=== PATIENT | female | born 1975 | race Caucasian/White ===

== ENCOUNTER → 2016-09-07 | Outpatient (CLI) | payer OTHER | LOC: RAD 09:37 | PROVIDERS: ATTEND Podiatrist Foot & Ankle Surgery | DX: M72.2 Plantar fascial fibromatosis (principal) ==

== ENCOUNTER 2016-09-16 11:03 | Day surgery (SDC) | payer OTHER ==
[2016-09-15 08:21] LABS: ABSOLUTE EOSINOPHILS # (AUTO) 0.2 10^3/uL (0.0-0.6); ABSOLUTE LYMPHOCYTES (AUTO) 1.8 10^3/uL (0.5-4.7); ABSOLUTE MONOCYTES (AUTO) 0.5 10^3/uL (0.1-1.4); ABSOLUTE NEUT (AUTO) 3.7 10^3/uL (1.7-8.2); BASOPHILS % (AUTO) 0.4 % (0-2); EOSINOPHILS % (AUTO) 3.3 % (0-6); HEMATOCRIT 38.4 % (36.0-47.0); HEMOGLOBIN 13.2 g/dL (12.0-15.5); HGB HCT DIFFERENCE 1.2; LYMPHOCYTES % (AUTO) 29.1 % (13-45); MEAN CORPUSCULAR HEMOGLOBIN 29.3 pg (27.0-33.4); MEAN CORPUSCULAR HGB CONC 34.3 g/dL (32.0-36.0); MEAN CORPUSCULAR VOLUME 86 fl (80-97); MONOCYTES % (AUTO) 7.8 % (3-13); RED BLOOD COUNT 4.49 10^6/uL (3.72-5.28); RED CELL DISTRIBUTION WIDTH 13.1 % (11.5-14.0); SEGMENTED NEUTROPHILS % (AUTO) 59.4 % (42-78); WHITE BLOOD COUNT 6.3 10^3/uL (4.0-10.5)
[2016-09-15 08:31] LABS: APPEARANCE,URINE CLEAR; BILIRUBIN,URINE NEGATIVE (NEGATIVE); GLUCOSE, URINE NEGATIVE (NEGATIVE); KETONES,URINE NEGATIVE (NEGATIVE); LEUKOCYTE ESTERASE,URINE NEGATIVE (NEGATIVE); NITRITE,URINE NEGATIVE (NEGATIVE); PROTEIN,URINE NEGATIVE (NEGATIVE); URINE SPECIFIC GRAVITY 1.003; UROBILINOGEN,URINE NEGATIVE mg/dL (<2.0)
[~2016-09-16 11:03] MED LIST: CEFAZOLIN 1 GM/D5W RTU 1 GM/50 ML RTUPB IV PRN; RINGERS SOLUTION,LACTATED 1,000 ML IV PRN
[2016-09-16] MEDS ORDERED: DEXAMETHASONE SOD PHOSPHATE INJ 4 MG/1 ML VIAL ONE ×2 (11:39→11:59)
[2016-09-16] MEDS ORDERED: HYDROMORPHONE HCL INJ/PF 2 MG/ML AMPULE ONE (11:40)
[2016-09-16] MEDS ORDERED: MIDAZOLAM 2 MG/2 ML INJ ONE (11:40)
[2016-09-16] MEDS ORDERED: ONDANSETRON HCL INJ/PF 4 MG/2 ML SDV ONE (11:40)
[2016-09-16] MEDS ORDERED: PROPOFOL INJ 200 MG/20 ML VIAL IV ONE (11:40)
[2016-09-16] MEDS ORDERED: PROMETHAZINE HCL INJ 25 MG/1 ML VIAL ONE (11:55)
[2016-09-16] MEDS ORDERED: BUPIVACAINE HCL 0.5 % INJ/PF 30 ML SDV ONE (11:59)
[2016-09-16] MEDS ORDERED: LIDOCAINE 2% INJ (20 MG/ML) 20 ML MDV ONE (11:59)
--- NOTE | 2016-09-16 14:13 | SURGICARE OPERATIVE REPORT E ---
[facility] NAME: ALISA GRADY AGE: 40Y DATE OF SURGERY: 09/16/2016 ROOM: PREOPERATIVE DIAGNOSIS: Chronic heel spur syndrome, left foot. POSTOPERATIVE DIAGNOSIS: Chronic heel spur syndrome, left foot. PROCEDURES PERFORMED: Endoscopic plantar fasciotomy, left foot. SURGEON: RUDOLPH YOUSIF D.P.M. FINDINGS: Intraoperative findings indicated very thick scar type of plantar fascia at the level of its attachment to the plantar aspect of the calcaneus. Intraoperative findings were confirmed clinically and also via intraoperative photography. DESCRIPTION OF PROCEDURE: With the patient lying in the dorsal recumbent position, the left foot and leg were prepped and draped in the usual standard orthopedic manner. After the local anesthesia was administered, which was a posterior tibial block around the ankle and also blocking the sural nerve. After the anesthetic effect was accomplished, attention was directed to the medial aspect of the left foot. The measurements from the x-rays were transferred to the medial side of the heel at this point. The measurements were from the posterior aspect of the heel to the front of the medial calcaneal tubercle and that was about 3.5 cm and from plantar aspect of the foot in front of the medial calcaneal tubercle, which was about 2.5 cm. The intersection of the 2 measurements was the area where the placement of the initial incision would be located. At this point, the left leg was elevated for approximately 2 minutes of time and the left ankle pneumatic tourniquet was inflated up to 250 mmHg after the blood was exsanguinated from the left foot. The left leg was brought to the level of the table and attention was directed to the medial aspect of the left heel. A 1 cm in length vertical incision was placed right over the level of the intersection of the 2 points of obtained from the x-rays. The initial incision was deepened in the superficial and deep subcutaneous tissues were dissected with blunt and sharp dissection. This dissection was carried until the level of the placement of the instrumentation was established, which was between the plantar fascia superiorly and the heavy layer of adipose tissue inferiorly to the plantar fascia. Using an elevator, a pathway was created for the placement of the probe with a trocar sheath. The pathway was immediately inferior and adjacent to the plantar fascia and extended from medial to lateral direction across the length of the fascia. Next, the probe with the trocar sheath was introduced into the surgical area, and a small stab incision was created to the lateral aspect of the heel in order to allow the cylinder to exit on the lateral aspect of the heel. At this point, the probe was removed and the cutting surface of the trocar sheath was adjusted in such a way that it was facing directly superiorly in relationship to the plantar fascia. At this point, the scope was introduced into the area and the point of orientation was established. The first intraoperative picture was obtained, which documented the white, glistening, thick plantar fascia. Next, using a regular hockey-type blade, the plantar fascia was cut from medial to lateral direction. Several repetitions were performed with this blade due to the thickness of the plantar fascia. At this point, the second photograph was obtained documenting the partial severing of the plantar fascia. Next, pressure was applied to the ball of the foot. The foot was dorsiflexed and the repetition of cutting from medial to lateral direction continued until the full thickness of the plantar fascia was severed. Only the medial two-thirds of the plantar fascia were completely cut from medial to lateral direction and the lateral one-third of the plantar fascia was left uninterrupted. Next, the septal muscle fibers were also cut. At this point, a final photograph was taken documenting the complete severing of the plantar fascia and again, only the medial two-thirds of the fascia was severed. At this point, the positioning of the scalpel and the blade were reversed in order to make sure that any un-severed fibers of the plantar fascia were cut completely. Upon completion of the severing of the plantar fascia, the surgical area was irrigated with copious amounts of sterile saline solution. The trocar sheath was removed from the surgical area and the left ankle pneumatic tourniquet was deflated and circulation to the left foot returned to normal immediately as the normal digital color and temperature became apparent. Next, 1 mL of dexamethasone was injected into the surgical area to control postoperative inflammation. A [place] was introduced from medial to lateral direction into the surgical wound in order to prevent hematoma formation. Next, a 4-0 nylon was utilized to close the small stab incision on the medial and lateral aspect of the heel. A Betadine compression dressing was applied around the left foot followed with an Lionel bandage and a surgical shoe. This patient tolerated the procedure well and left the operating room with stable vital signs and in good condition. The patient was taken to the recovery room alert, conscious, and oriented. There are no permanent disabilities anticipated at this time. DICTATING PHYSICIAN: RUDOLPH YOUSIF D.P.M. [id number] PHY#: [id number] ID: [id number] JOB#: [id number] ACCT: [id number] cc:RUDOLPH YOUSIF D.P.M. >
== END 2016-09-16 14:35 | disposition home or self-care (01) ==
LOC: SC 11:03
PROVIDERS: ATTEND Podiatrist Foot & Ankle Surgery
PROC: 0JBR0ZX Excision of Left Foot Subcutaneous Tissue and Fascia, Open Approach, Diagnostic (ICD-10-PCS; principal; 2016-09-16 12:00)
DX: M72.2 Plantar fascial fibromatosis (principal); M77.32 Calcaneal spur, left foot; Z88.1 Allergy status to other antibiotic agents; Z79.899 Other long term (current) drug therapy; Z79.1 Long term (current) use of non-steroidal anti-inflammatories (NSAID)
CPT/HCPCS: 36415; 85025; 81001; 29893; J2250; J3490; J0690; J1100; J1170; J2550; J2405; J2704; 1464

== ENCOUNTER 2017-01-28 10:03 | Emergency (ER) | payer OTHER ==
[2017-01-28] MEDS ORDERED: IBUPROFEN 600 MG TABLET PO ONE (10:18)
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
[2017-01-28 11:25] VITALS: BP 141/93
== END 2017-01-28 11:23 | disposition home or self-care (01) ==
LOC: ER 10:03
DX: S80.02XA Contusion of left knee, initial encounter (principal); S80.01XA Contusion of right knee, initial encounter; V53.5XXA Driver of pick-up truck or van injured in collision with car, pick-up truck or van in traffic accident, initial encounter; Z88.3 Allergy status to other anti-infective agents; Z90.710 Acquired absence of both cervix and uterus
CPT/HCPCS: 99284

== ENCOUNTER 2017-01-29 13:04 | Emergency (ER) | payer OTHER ==
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
[2017-01-29 14:49] VITALS: BP 140/88
== END 2017-01-29 14:46 | disposition home or self-care (01) ==
LOC: ER 13:04
DX: S39.012A Strain of muscle, fascia and tendon of lower back, initial encounter (principal); V49.9XXA Car occupant (driver) (passenger) injured in unspecified traffic accident, initial encounter; Z88.1 Allergy status to other antibiotic agents
CPT/HCPCS: 99283

== ENCOUNTER 2017-03-30 20:54 | Emergency (ER) | payer OTHER ==
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
[2017-03-30] MEDS ORDERED: PROCHLORPERAZINE MALEATE 10 MG TABLET PO ONE (22:45)
[2017-03-30] MEDS ORDERED: KETOROLAC TROMETHAMINE 60 MG/2 ML SDV IM ONE (22:45)
[2017-03-30] MEDS ORDERED: DIPHENHYDRAMINE HCL 25 MG CAPSULE PO ONE (22:45)
[2017-03-31] MEDS ORDERED: HYDROCODONE/ACETAMINOPHEN 5-325 MG TABLET PO ONE (00:54)
[2017-03-31] MEDS ORDERED: HYDROCODONE/ACETAMINOPHEN 5-325 MG 6 TAB/DSPK PO PRN (00:54)
[2017-03-31 01:41] VITALS: BP 131/83
== END 2017-03-31 01:37 | disposition home or self-care (01) ==
LOC: ER 20:54
DX: S16.1XXA Strain of muscle, fascia and tendon at neck level, initial encounter (principal); G44.209 Tension-type headache, unspecified, not intractable; M62.830 Muscle spasm of back; M54.2 Cervicalgia; R20.0 Anesthesia of skin; X58.XXXA Exposure to other specified factors, initial encounter
CPT/HCPCS: 99283; 96372; J1885; S0183

== ENCOUNTER 2018-01-09 17:03 | Emergency (ER) | payer OTHER ==
[2018-01-09] MEDS ORDERED: DEXAMETHASONE SOD PHOS INJ 10 MG/1 ML VIAL IM ONE (17:29)
[2018-01-09] MEDS ORDERED: KETOROLAC TROMETHAMINE INJ/PF 30 MG/1 ML SDV IM ONE (17:29)
[2018-01-09] MEDS ORDERED: LIDOCAINE 5% (700 MG) TRANSDERMAL ADH..PATCH TP ONE (17:29)
--- NOTE | 2018-01-09 17:34 | ER Document Report ---
HPI - HPI Pain Level: 4 Notes: Patient is a 42-year-old female with a history of chronic neck pain and under the care of pain management who presents to the ED complaining of right upper buttock pain 2-3 days. Patient states that she has been doing yoga and noticed when she sat up that she started having pain in that area. Patient states that sitting for prolonged periods makes the pain worse. Laying down improves her pain. Patient states that the pain is primarily in the buttock but will radiate down the lateral side of her leg on occasion. She has not had any injections or procedures to her lower back. She denies any other recent illness. Denies any smoking or IV drug use. No other significant past medical history. She is eating and drinking without any difficulties. She is urinating normally and having normal bowel movements. Patient states that she is able to ambulate as well without any difficulties. Denies any headache, fever, URI, sore throat, chest pain, palpitations, syncope, cough, shortness of breath, wheeze, dyspnea, abdominal pain, nausea/vomiting/diarrhea, urinary retention, dysuria, hematuria, loss of control of bowel or bladder, saddle anesthesia, muscle paralysis/weakness, or rash. - ROS Systems Reviewed and Negative: Yes All other systems reviewed and negative - REPRODUCTIVE Reproductive: DENIES: : Past Medical History - Social History Smoking Status: Never Smoker Family History: Arthritis, CAD, CVA, DM, Hyperlipidemia, Hypertension, Malignancy - Past Medical History Cardiac Medical History: Denies: Hx Heart Attack, Hx Hypertension Pulmonary Medical History: Denies: Hx Asthma Neurological Medical History: Denies: Hx Cerebrovascular Accident, Hx Seizures Renal/ Medical History: Denies: Hx Peritoneal Dialysis GI Medical History: Denies: Hx Hepatitis, Hx Hiatal Hernia, Hx Ulcer Infectious Medical History: Denies: Hx Hepatitis Past Surgical History: Reports: Hx Appendectomy, Hx Hysterectomy. Denies: Hx Mastectomy, Hx Open Heart Surgery - Immunizations Hx Diphtheria, Pertussis, Tetanus Vaccination: Yes Vertical Provider Document - CONSTITUTIONAL Agree With Documented VS: Yes Notes: PHYSICAL EXAMINATION: GENERAL: Well-appearing, well-nourished and in no acute distress. LUNGS: Breath sounds clear to auscultation bilaterally and equal. No wheezes rales or rhonchi. HEART: Regular rate and rhythm without murmurs, rubs, gallops. ABDOMEN: Soft, nontender, nondistended abdomen. No guarding, no rebound. No masses appreciated. Normal bowel sounds present. No CVA tenderness bilaterally. No pulsatile mass Musculoskeletal: LE's b/l: FROM to passive/active. Strength 5+/5. No deficits noted. No bony tenderness of extremities. Back: FROM to passive/active. Strength 5+/5. No vertebral point tenderness, stepoffs, or deformities. No other bony tenderness, erythema, swelling, or ecchymosis. SLR negative b/l. + rt SI jt tenderness, correlates with pain described. No foot drop Extremities: No cyanosis, clubbing, or edema b/l. Peripheral pulses 2+. Capillary refill less than 2 seconds. NEUROLOGICAL: Normal speech, normal gait. Normal sensory, motor exams. Reflexes 2+ b/l. PSYCH: Normal mood, normal affect. SKIN: Warm, Dry, normal turgor, no rashes or lesions noted. - INFECTION CONTROL TRAVEL OUTSIDE OF THE [place] IN LAST 30 DAYS: No Course - Re-evaluation Re-evalutation: 01/09/18 17:31 Patient is an afebrile, well-hydrated, 42-year-old female who presents to the ED with right sacroiliitis. Vitals are acceptable. PE is otherwise unremarkable for any neurovascular compress, obvious tendon/ligament rupture, obvious fracture/dislocation, septic joint, or other focal neurological deficits. Patient is able to ambulate and weight-bear without any difficulties. Her pain is reproducible to palpation at the right SI joint. Toradol, Decadron, Lidoderm patch given today. No other labs or imaging warranted at this time based on H&P. Low suspicion for any meningitis, fracture , expanding/ruptured AAA, cauda equina syndrome, epidural mass lesion/abscess, herniated disc causing severe spinal stenosis, or other systemic infection at this time. Patient is aware that t his condition can change from initial presentation and that she needs monitor symptoms closely for any acute changes. I will send her home with a prescription for naproxen and baclofen. Conservative measures otherwise for symptoms. Recheck with your PCM/pain management in 3-5 days. Consider consult orthopedic/physical therapy. Return to the ED with any worsening/concerning symptoms otherwise as reviewed discharge. Patient is in agreement. - Vital Signs Vital signs: Temp Pulse Resp BP Pulse Ox 98.4 F 79 18 151/82 H 99 01/09/18 17:08 01/09/18 17:08 01/09/18 17:08 01/09/18 17:08 01/09/18 17:08 Discharge - Discharge Clinical Impression: SI (sacroiliac) joint inflammation Condition: Stable Disposition: HOME, SELF-CARE Additional Instructions: Rest, Ice, Compression Tylenol/ibuprofen as needed Light stretches daily Strength exercises as able Moist heat and massage may help F/u with your PCP/pain management in 3-5 days for a recheck Consider consult(s) with Orthopedics/physical therapy for ongoing/worsening symptoms Return to the ED with any worsening symptoms and/or development of fever, headache, chest pain, palpitations, syncope, shortness of breath, trouble breathing, abdominal pain, n/v/d, blood in stool/urine, loss of control of bowel /bladder, urinary retention, muscle weakness/paralysis, saddle anesthesia, numbness/tingling, or other worsening symptoms that are concerning to you. Prescriptions: Baclofen [Baclofen 10 mg Tablet] 5 - 10 mg PO BID PRN #10 tablet PRN Reason: Naproxen 500 mg PO BID PRN #30 tablet PRN Reason: Forms: Elevated Blood Pressure, Return to Work Referrals: [facility] ([facility]) [Provider Group] - Follow up as needed
[2018-01-09 18:06] VITALS: BP 136/74
== END 2018-01-09 18:15 | disposition home or self-care (01) ==
LOC: ER 17:03
DX: M46.1 Sacroiliitis, not elsewhere classified (principal); G89.29 Other chronic pain; M54.2 Cervicalgia; Z90.710 Acquired absence of both cervix and uterus
CPT/HCPCS: 99283; 96372; J1885; J1100

== ENCOUNTER → 2018-01-10 | Outpatient (CLI) | payer OTHER ==
--- NOTE | 2018-01-10 14:50 | RADIOLOGY REPORT (SQ) ---
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 TECHNIQUE: Sagittal and Axial imaging includes T1, T2, STIR and gradient echo sequences. Coronal T2/ HASTE imaging. LIMITATIONS: Patient motion. FINDINGS: VISUALIZED UPPER ABDOMEN: Limited evaluation. No acute or suspicious findings suggested. SEGMENTATION: No transitional anatomy. The lowest well-developed disc space is labeled L5-S1. ALIGNMENT: Anatomic. VERTEBRAE: Intact. BONE MARROW: Normal. No marrow replacement or reactive changes. DISC SIGNAL: Desiccation multiple levels. POSTERIOR ELEMENTS: Intact. HARDWARE: None in the spine. CORD AND CONUS: Normal in size and signal intensity. Conus at the appropriate level. SOFT TISSUES: No aortic aneurysm seen. No bulky retroperitoneal adenopathy or mass. No paraspinal mas s or fluid. L1-L2: No significant spinal stenosis or exit foraminal stenosis. L2-L3: Small right paracentral annular fissure indenting the ventral margin of thecal sac. L3-L4: No significant spinal stenosis or exit foraminal stenosis. L4-L5: No significant spinal stenosis or exit foraminal stenosis. L5-S1: Small central disc protrusion indenting the ventral margin of thecal sac. LOWER THORACIC: Incompletely imaged. No stenosis seen. SACRUM: Visualized upper sacrum intact. OTHER: No other significant findings. IMPRESSION: Annular fissure L2-3. Small central disc protrusion L5-S1. TECHNICAL DOCUMENTATION: JOB ID: [id number] [employer]- All Rights Reserved Reading location - IP/workstation name: [email or web address]
== END ==
LOC: RAD 13:05
PROVIDERS: ATTEND Family Medicine
DX: M51.17 Intervertebral disc disorders with radiculopathy, lumbosacral region (principal)
CPT/HCPCS: 72148

== ENCOUNTER → 2018-02-08 | Outpatient (CLI) | payer OTHER ==
--- NOTE | 2018-02-08 11:40 | WOMENS IMAGING REPORT ---
EXAM DESCRIPTION: 3D SCREENING MAMMO BILAT COMPLETED DATE/TIME: 02/08/2018 11:26 am REASON FOR STUDY: MALIGNANT NEOPLASM OF BREAST; Z12.39 Z12.31 ENCNTR SCREEN MAMMOGRAM FOR MALIGNANT NEOPLASM OF JD COMPARISON: 07/08/2014 and 10/01/2012. TECHNIQUE: Standard craniocaudal and mediolateral oblique views of each breast recorded using digita l acquisition and breast tomosynthesis. LIMITATIONS: None. FINDINGS: No masses, calcifications or architectural distortion. No areas of suspicion. Read with the assistance of CAD. .[facility] - R2 Cenova Version 1.3 .[facility] Imaging - R2 Cenova Version 1.3 .[facility] Imaging - R2 Cenova Version 2.4 .[facility] - R2 Cenova Version 2.4 .[facility] - R2 Manager Registration Version 9.2 IMPRESSION: NORMAL MAMMOGRAM. BIRADS 1. BREAST DENSITY: c. The breasts are heterogeneously dense, which may obscure small masses. BIRAD: 1 NEGATIVE RECOMMENDATION: ROUTINE SCREENING COMMENT: The patient has been notified of the results by letter per SA requirements. Additional no tification policies are in place for contacting patient with suspicious or incomplete findings. Quality ID #[id number]: The [employer] recommends an annual screening mammogram for women aged 40 years or over. This facility utilizes a reminder system to ensure that all patients receive reminder letters, and/or direct phone calls for appointments. This includes reminders for routine scr eening mammograms, diagnostic mammograms, or other Breast Imaging Interventions when appropriate. Th is patient will be placed in the appropriate reminder system. The [employer] (ACR) has developed recommendations for screening MRI of the breast s in certain patient populations, to be used in conjunction with mammography. Breast MRI surveillanc e may be appropriate for women with more than 20% lifetime risk of developing breast cancer as deter mined by genetic testing, significant family history of the disease, or history of mantle radiation f or Hodgkins Disease. ACR Practice Guidelines 2008. DBT Technology DBT is a type of tomographic mammography. With conventional mammography, overlapping breast tissue ma y make lesions difficult to detect, even with good compression. DBT uses an x-ray tube that rotates a round the breast, taking images at different angles. These images are then combined to create thin sl ices of the breast that the radiologist can view as a 3D reconstruction. The UI Robot unit can perform full-field digital mammograms (2D imaging); or DBT (3D imaging); or both, in a combination mode that quickly performs both the mammogram and the tomosynthesis scan while the breast is still compressed. PQRS 6045F: Fluoroscopic imaging is not utilized for breast tomosynthesis. TECHNICAL DOCUMENTATION: FINDING NUMBER: (1) ASSESSMENT: (1) JOB ID: [id number] [employer]- All Rights Reserved Reading location - IP/workstation name: [facility]-RR
== END ==
LOC: WI 10:10
PROVIDERS: ATTEND Nurse Practitioner Family
DX: Z12.31 Encounter for screening mammogram for malignant neoplasm of breast (principal); Z12.39 Encounter for other screening for malignant neoplasm of breast
CPT/HCPCS: 77063; 77067

== ENCOUNTER 2019-04-22 19:08 | Emergency (ER) | payer OTHER ==
[2019-04-22] MEDS ORDERED: DIPH/PERTUSS(ACELL)/TETANUS VAC/PF 0.5 ML SYR (>=10YO) IM ONE (19:28)
[2019-04-22] MEDS ORDERED: LIDOCAINE 1% INJ-PF (10 MG/ML) 30 ML SDV INJ ONE ×2 (19:30→20:42)
[2019-04-22] MEDS ORDERED: LIDOCAINE 1% INJ-PF (10 MG/ML) 30 ML SDV ONE (19:31)
--- NOTE | 2019-04-22 19:32 | ER Document Report ---
ED Medical Screen (RME) - General Chief Complaint: Laceration Stated Complaint: FINGER LACERATION Time Seen by Provider: 04/22/19 19:28 Primary Care Provider: FABIOLA MCCLURE CRNP [Primary Care Provider] - Follow up as needed Mode of Arrival: Ambulatory Information source: Patient Notes: Patient is an otherwise healthy 43-year-old female presenting to the emergency room with chief complaint of left fourth digit laceration. Patient reports she was cleaning of her lawnmower when she got cut by the blade. The blade was not actively running. Patient is unsure when her last tetanus was. There is mild active bleeding noted at the time of arrival. Patient having severe pain, digital block was performed in triage, patient will be sent for x-rays. I have greeted and performed a rapid initial assessment of this patient. A comprehensive ED assessment and evaluation of the patient, analysis of test results and completion of the medical decision making process will be conducted by additional ED providers. I have specifically instructed the patient or family members with the patient to immediately return to any nursing staff should anything change in the patient's condition or with their chief complaint. This medical record was dictated with voice recognizing software. There may be grammatical, syntax errors that are unintended. TRAVEL OUTSIDE OF THE [place] IN LAST 30 DAYS: No - Related Data Allergies/Adverse Reactions: erythromycin base [Erythromycin Base] Allergy (Severe, Verified 01/09/18 17:30) VOMITING, HIVES, SOB Past Medical History - Past Medical History Cardiac Medical History: Denies: Hx Heart Attack, Hx Hypertension Pulmonary Medical History: Denies: Hx Asthma Neurological Medical History: Denies: Hx Cerebrovascular Accident, Hx Seizures Renal/ Medical History: Denies: Hx Peritoneal Dialysis GI Medical History: Denies: Hx Hepatitis, Hx Hiatal Hernia, Hx Ulcer Infectious Medical History: Denies: Hx Hepatitis Past Surgical History: Reports: Hx Appendectomy, Hx Hysterectomy. Denies: Hx Mastectomy, Hx Open Heart Surgery - Immunizations Hx Diphtheria, Pertussis, Tetanus Vaccination: Yes Physical Exam - Vital signs Vitals: Temp Pulse Resp BP Pulse Ox 98.3 F 91 22 H 134/92 H 97 04/22/19 19:19 04/22/19 19:19 04/22/19 19:19 04/22/19 19:19 04/22/19 19:19 Course - Vital Signs Vital signs: Temp Pulse Resp BP Pulse Ox 98.3 F 91 22 H 134/92 H 97 04/22/19 19:19 04/22/19 19:19 04/22/19 19:19 04/22/19 19:19 04/22/19 19:19 Doctor's Discharge - Discharge Referrals: FABIOLA MCCLURE CRNP [Primary Care Provider] - Follow up as needed
[2019-04-22] MEDS ORDERED: OXYCODONE-ACETAMINOPHEN 5-325 MG TABLET PO ONE (19:39)
--- NOTE | 2019-04-22 20:38 | RADIOLOGY REPORT (SQ) ---
EXAM DESCRIPTION: Right 4th finger RadLex: XR FINGERS Views: 3 CLINICAL HISTORY: 43 years Female, bone pain COMPARISON: None. FINDINGS: Bandage material somewhat obscures the 4th finger. Overall alignment of the 4th digit is grossly anatomic. No displaced fractures. IP joint spaces are preserved. IMPRESSION: 1. No dislocation or displaced fractures of the right 4th finger. 2. Note that bandage material somewhat obscures visualization
--- NOTE | 2019-04-22 20:41 | ER Document Report ---
ED General - General Chief Complaint: Laceration Stated Complaint: FINGER LACERATION Time Seen by Provider: 04/22/19 19:28 Primary Care Provider: FABIOLA MCCLURE CRNP [NO LOCAL MD] - Follow up as needed Mode of Arrival: Ambulatory Notes: Patient is a 43-year-old female that presents to the emergency department for chief complaint of right ring finger laceration. Patient reports that at around 630 this evening, she was cleaning her lawnmower, with an ungloved hand, which resulted in a laceration to the distal portion of her right ring finger. She states there were some bleeding associated, the blade was not spinning at the time, she decided along with blade as she was trying to remove the wet grass. She has a constant throbbing pain in her finger at this time she describes as an 8 out of 10, and is a burning sensation as well. Denies any difficulty with bending her finger, but states it is painful. She is right-handed, does not recall her last tetanus vaccination. Past Medical History: Denies chronic medical conditions Past Surgical History: Appendectomy, partial hysterectomy, tubal ligation Social History: Admits to rare alcohol use, denies tobacco or illicit drug use. Family History: Reviewed and noncontributory for presenting illness Allergies: Reviewed, see documented allergy list. REVIEW OF SYSTEMS: Other than noted above, the 12 point review of systems was reviewed with the patient and were negative, all pertinent findings are included in the HPI. PHYSICAL EXAMINATION: Vital signs reviewed, nursing noted reviewed. GENERAL: Well-appearing, well-nourished and in no acute distress. HEAD: Atraumatic, normocephalic. EYES: Eyes appear normal, sclera anicteric, conjunctiva are normal. ENT: Moist mucous membranes. NECK: Normal range of motion, supple without lymphadenopathy LUNGS: Breath sounds clear to auscultation bilaterally and equal. No wheezes rales or rhonchi. HEART: Regular rate and rhythm without murmurs EXTREMITIES: The right index finger is noted to have a 1-1/2 cm laceration, at the distal tip, does not involve the nail of the nailbed. It is deep to the subcutaneous tissues, and into the finger pad, no exposed bone. There does not appear to be any tendon injury, patient is able to flex at the DIP and PIP, and against resistance, with good strength. Cap refill is intact distally. The rest the patient's extremity exam is grossly unremarkable. No other injuries noted. NEUROLOGICAL: No focal neurological deficits. Moves all extremities spontaneously Motor and sensory grossly intact on exam. PSYCH: Normal mood, normal affect. SKIN: Warm, Dry, normal turgor, no rashes or lesions noted on exposed skin TRAVEL OUTSIDE OF THE [place] IN LAST 30 DAYS: No - Related Data Allergies/Adverse Reactions: erythromycin base [Erythromycin Base] Allergy (Severe, Verified 01/09/18 17:30) VOMITING, HIVES, SOB Past Medical History - General Information source: Patient - Social History Smoking Status: Never Smoker Chew tobacco use (# tins/day): No Frequency of alcohol use: Occasional Drug Abuse: None Family History: Arthritis, CAD, CVA, DM, Hyperlipidemia, Hypertension, Malignancy Patient has suicidal ideation: No Patient has homicidal ideation: No - Past Medical History Cardiac Medical History: Denies: Hx Heart Attack, Hx Hypertension Pulmonary Medical History: Denies: Hx Asthma Neurological Medical History: Denies: Hx Cerebrovascular Accident, Hx Seizures Renal/ Medical History: Denies: Hx Peritoneal Dialysis GI Medical History: Denies: Hx Hepatitis, Hx Hiatal Hernia, Hx Ulcer Infectious Medical History: Denies: Hx Hepatitis Past Surgical History: Reports: Hx Appendectomy, Hx Hysterectomy. Denies: Hx Mastectomy, Hx Open Heart Surgery - Immunizations Hx Diphtheria, Pertussis, Tetanus Vaccination: Yes Physical Exam - Vital signs Vitals: Temp Pulse Resp BP Pulse Ox 98.3 F 91 22 H 134/92 H 97 04/22/19 19:19 04/22/19 19:19 04/22/19 19:19 04/22/19 19:19 04/22/19 19:19 Course - Re-evaluation Re-evalutation: Patient seen and examined vital signs reviewed. Patient was evaluated and treated as appropriate for the patient's presenting symptoms and complaint, with consideration of any critical or life threatening conditions that may be associated with their obtained history and exam as noted above. Patient was treated with suture repair, was given a dose of Percocet in triage The patient was re-evaluated and was stable and tolerated procedure Evaluation was most consistent with right ring finger laceration, will discharge patient home with a prescription for Augmentin for 5 days, she was given a tetanus vaccination in the ED, she is placed in a splint, and advised follow-up in 8 days to have her sutures removed. Plan of care was discussed with the patient at this point, after careful consideration I feel that that patient can be discharged from the emergency department, the patient was educated treatments and reasons to return to the emergency department based on their presumed diagnosis as noted above, they were advised to followup with a primary care physician in 2-3 days. Patient was agreeable to plan of care. *Note is created using voice recognition software and may contain spelling, syntax or grammatical errors. Finger X-Ray 04/22/19 00:00 IMPRESSION: 1. No dislocation or displaced fractures of the right 4th finger. 2. Note that bandage material somewhat obscures visualization - Vital Signs Vital signs: Temp Pulse Resp BP Pulse Ox 98.0 F 69 12 139/85 H 97 04/22/19 23:08 04/22/19 23:08 04/22/19 23:08 04/22/19 23:08 04/22/19 23:08 Procedures - Laceration/Wound Repair Right Finger 4th digit Wound length (cm): 1.5 Wound's Depth, Shape: Into muscle, Linear Laceration pre-procedure: Sterile PPE donned, Sterile drapes applied, Shur-Clens applied Anesthetic type: 1% Lidocaine Volume Anesthetic (mLs): 3 - digital block Wound explored: Clean Irrigated w/ Saline (mLs): 100 Wound Repaired With: Sutures Suture Size/Type: 5:0, Prolene Number of Sutures: 5 Layer Closure?: No Post-procedure wound care: Sterile dressing applied, Splint applied Post-procedure NV exam normal: Yes Complications: No Notes: Patient's wound was repaired as described above, there was significant swelling to the finger pad, which did put some tension across the laceration, was approximated well, with minimal separation at the middle portion of the wound, after suture repair, as swelling goes down this will improve and I discussed this with the patient to monitor, bacitracin was applied, patient was placed in a volar splint. Patient tolerated well. Discharge - Discharge Clinical Impression: Finger laceration Qualifiers: Encounter type: initial encounter Finger: ring finger Damage to nail status: without damage Foreign body presence: unspecified Laterality: right Qualified Code(s): S61.214A - Laceration without foreign body of right ring finger without damage to nail, initial encounter Condition: Stable Disposition: HOME, SELF-CARE Instructions: Laceration Care ([facility]), Tetanus Immunization Given ([facility]) Additional Instructions: Keep your finger clean and dry, please wash with soap and water and then pat dry, please follow-up in 8 to 10 days to have your sutures removed. And this may be done in the ER, or at your primary care office, if you notice signs of infection such as red streaking or pus drainage from your wound, please return to the emergency department immediately. Please complete the entire course of antibiotics as prescribed. Prescriptions: Amox Tr/Potassium Clavulanate [Augmentin 875-125 Tablet] 1 tab PO BID 5 Days #10 tablet Referrals: FABIOLA MCCLURE CRNP [NO LOCAL MD] - Follow up as needed
[2019-04-22] MEDS ORDERED: AMOXICILLIN TR/POT CLAVULANATE 500-125 MG TAB PO ONE (22:33)
[2019-04-22] MEDS ORDERED: HYDROCODONE/ACETAMINOPHEN 5-325 MG (6 TAB/ER DISP) PO PRN (22:34)
[2019-04-22 23:10] VITALS: BP 139/85
== END 2019-04-22 23:26 | disposition home or self-care (01) ==
LOC: ER 19:08
DX: S61.214A Laceration without foreign body of right ring finger without damage to nail, initial encounter (principal); W26.8XXA Contact with other sharp object(s), not elsewhere classified, initial encounter; Y93.89 Activity, other specified; Z23 Encounter for immunization; Z88.1 Allergy status to other antibiotic agents
CPT/HCPCS: 73140; 90715; 12001; J3490

== ENCOUNTER 2019-05-03 09:31 | Emergency (ER) | payer OTHER ==
[2019-05-03 09:35] VITALS: BP 130/87
--- NOTE | 2019-05-03 09:44 | ER Document Report ---
HPI - HPI Time Seen by Provider: 05/03/19 09:38 Pain Level: 0 Notes: Patient is a 43-year-old female presented to the emergency department with request for suture removal. Patient reports she was seen here 9 days ago and had sutures placed to her right fourth digit. She states she has been on an antibiotic since that that time. - REPRODUCTIVE Reproductive: DENIES: : Past Medical History - General Information source: Patient - Social History Smoking Status: Never Smoker Frequency of alcohol use: None Drug Abuse: None Family History: Arthritis, CAD, CVA, DM, Hyperlipidemia, Hypertension, Malignancy - Medical History Medical History: Negative - Past Medical History Cardiac Medical History: Denies: Hx Heart Attack, Hx Hypertension Pulmonary Medical History: Denies: Hx Asthma Neurological Medical History: Denies: Hx Cerebrovascular Accident, Hx Seizures Renal/ Medical History: Denies: Hx Peritoneal Dialysis GI Medical History: Denies: Hx Hepatitis, Hx Hiatal Hernia, Hx Ulcer Infectious Medical History: Denies: Hx Hepatitis Past Surgical History: Reports: Hx Appendectomy, Hx Hysterectomy. Denies: Hx Mastectomy, Hx Open Heart Surgery - Immunizations Hx Diphtheria, Pertussis, Tetanus Vaccination: Yes Vertical Provider Document - CONSTITUTIONAL Notes: PHYSICAL EXAMINATION: GENERAL: Well-appearing, well-nourished and in no acute distress. HEAD: Atraumatic, normocephalic. EYES: Pupils equal round extraocular movements intact, conjunctiva are normal. ENT: Nares patent NECK: Normal range of motion LUNGS: No respiratory distress Musculoskeletal: Normal range of motion NEUROLOGICAL: Normal speech, normal gait. PSYCH: Normal mood, normal affect. SKIN: Healing laceration noted to right fourth digit, slight amount of pus noted in the wound. No warmth or erythema. - INFECTION CONTROL TRAVEL OUTSIDE OF THE [place] IN LAST 30 DAYS: No Course - Re-evaluation Re-evalutation: Sutures are not quite ready to come out, they could use an additional 3 days. Patient has 1 day left of antibiotics. I will give her an additional 3 days of antibiotics considering there is a an area of pus to the wound. Patient verbalizes understanding and agreement with plan. The patient's emergency department workup and current diagnosis were explained to the patient and or family. Follow-up instructions were provided. Medications if prescribed were discussed. Instructions for when to return to the emergency department including specific worrisome symptoms were discussed with the patient and/or family. - Vital Signs Vital signs: Temp Pulse Resp BP Pulse Ox 98.2 F 76 20 130/87 H 100 05/03/19 09:34 05/03/19 09:34 05/03/19 09:34 05/03/19 09:34 05/03/19 09:34 Discharge - Discharge Clinical Impression: Encounter for wound re-check Condition: Stable Disposition: HOME, SELF-CARE Additional Instructions: Please return to the emergency department or your primary care provider in 3 to 4 days for suture removal. I do not feel they are quite ready to come out at this time. Please continue taking antibiotics as prescribed. Leave open to air. Prescriptions: Amox Tr/Potassium Clavulanate [Augmentin 875-125 mg Tablet] 1 tab PO BID #6 tabl et
== END 2019-05-03 09:45 | disposition home or self-care (01) ==
LOC: ER 09:31
DX: S61.412D Laceration without foreign body of left hand, subsequent encounter (principal); X58.XXXD Exposure to other specified factors, subsequent encounter
CPT/HCPCS: 99281

== ENCOUNTER 2019-05-10 15:46 | Emergency (ER) | payer OTHER ==
[2019-05-10 16:05] VITALS: BP 143/92
--- NOTE | 2019-05-10 16:49 | ER Document Report ---
ED Suture/Wound Recheck - General Chief Complaint: Suture Removal Stated Complaint: REMOVAL OF SUTURES Time Seen by Provider: 05/10/19 16:44 Notes: 43-year-old female presents to ED for suture removal from the right ring finger. She states they will put in 14 days ago but she came back again at the time she was first toe and they told her she needed a couple more days. She states she is in here now to get the sutures removed. This area does look like it is healing appropriately there is no redness swelling or drainage. TRAVEL OUTSIDE OF THE [place] IN LAST 30 DAYS: No - HPI Previous ED treatment: Laceration repair Antibiotics given previously: Prescription Quality of pain: No pain Severity: None Pain Level: Denies Context: Injury Symptoms since procedure: No complaints Exacerbated by: Denies Relieved by: Denies - Related Data Allergies/Adverse Reactions: erythromycin base [Erythromycin Base] Allergy (Severe, Verified 05/10/19 15:47) VOMITING, HIVES, SOB Past Medical History - General Information source: Patient - Social History Smoking Status: Never Smoker Chew tobacco use (# tins/day): No Frequency of alcohol use: None Drug Abuse: None Lives with: Family Family History: Arthritis, CAD, CVA, DM, Hyperlipidemia, Hypertension, Malignancy Patient has suicidal ideation: No Patient has homicidal ideation: No - Past Medical History Cardiac Medical History: Reports: None Pulmonary Medical History: Reports: None EENT Medical History: Reports: None Neurological Medical History: Reports: None Endocrine Medical History: Reports: None Renal/ Medical History: Reports: None Malignancy Medical History: Reports: None GI Medical History: Reports: None Musculoskeletal Medical History: Reports None Skin Medical History: Reports None Psychiatric Medical History: Reports: None Traumatic Medical History: Reports: None Infectious Medical History: Reports: None Past Surgical History: Reports: Hx Appendectomy, Hx Hysterectomy - Immunizations Hx Diphtheria, Pertussis, Tetanus Vaccination: Yes Review of Systems - Review of Systems Constitutional: No symptoms reported EENT: No symptoms reported Cardiovascular: No symptoms reported Respiratory: No symptoms reported Gastrointestinal: No symptoms reported Genitourinary: No symptoms reported Female Genitourinary: No symptoms reported Musculoskeletal: No symptoms reported Skin: Other - Sutures intact to right fourth finger wound healing scab in place no drainage no redness no inflammation Hematologic/Lymphatic: No symptoms reported Neurological/Psychological: No symptoms reported -: Yes All other systems reviewed and negative Physical Exam - Vital signs Vitals: Temp Pulse Resp BP Pulse Ox 97.9 F 70 18 143/92 H 99 05/10/19 16:03 05/10/19 16:03 05/10/19 16:03 05/10/19 16:03 05/10/19 16:03 Interpretation: Normal - General General appearance: Appears well, Alert - HEENT Head: Normocephalic, Atraumatic Eyes: Normal Pupils: PERRL - Respiratory Respiratory status: No respiratory distress Chest status: Nontender Breath sounds: Normal Chest palpation: Normal - Cardiovascular Rhythm: Regular Heart sounds: Normal auscultation Murmur: No - Abdominal Inspection: Normal Distension: No distension Bowel sounds: Normal Tenderness: Nontender Organomegaly: No organomegaly - Back Back: Normal, Nontender - Extremities General upper extremity: Normal inspection, Nontender, Normal color, Normal ROM, Normal temperature General lower extremity: Normal inspection, Nontender, Normal color, Normal ROM, Normal temperature, Normal weight bearing. No: Tico's sign - Neurological Neuro grossly intact: Yes Cognition: Normal Orientation: AAOx4 Sudha Coma Scale Eye Opening: Spontaneous Romance Coma Scale Verbal: Oriented Romance Coma Scale Motor: Obeys Commands Romance Coma Scale Total: 15 Speech: Normal Motor strength normal: LUE, RUE, LLE, RLE Sensory: Normal - Psychological Associated symptoms: Normal affect, Normal mood - Skin Skin Temperature: Warm Skin Moisture: Dry Skin Color: Normal Location of irregularity: Other - Healing laceration to the right fourth finger sutures needed to be removed [address] Course - Re-evaluation Re-evalutation: 05/10/19 22:21 5 sutures removed from right fourth finger. Scab made it a little difficult to remove the sutures. Finger was soaked to loosen up the scab and then the sutures were removed. Bacitracin and Band-Aid was applied to the area and patient was discharged home. - Vital Signs Vital signs: Temp Pulse Resp BP Pulse Ox 97.9 F 70 18 143/92 H 99 05/10/19 16:03 05/10/19 16:03 05/10/19 16:03 05/10/19 16:03 05/10/19 16:03 Discharge - Discharge Clinical Impression: Visit for suture removal Condition: Stable Disposition: HOME, SELF-CARE Instructions: Family Physicians / Practices, Suture Removal Additional Instructions: SOAP CLEANSING: Gently wash the wound daily using a mild soap (like Ivory, Phisoderm, Neutrogena). Use warm water, rubbing gently until all debris, ooze, and crusting have been washed from the wound. Allow to dry briefly (about 10 minutes) after cleaning. Repeat this cleansing at least three times a day for the first two days and then once or twice a day. ANTIBIOTIC OINTMENT PROTECTION: Your wounds are such that dressing them is not practical or optional. After cleansing, you should apply a thin coating of antibiotic ointment ( Bacitracin, not Neosporin) to the wounds at least three times daily. This lessens infection risk, and may decrease the amount of scarring. Use a q-tip or dull butter knife, not your finger, to apply this ointment. Any debris or ooze which builds up in the ointment should be gently rubbed off with a sterile gauze pad. Harder crusting may need to be gently scrubbed off with a clean wash cloth with soap and warm water, perhaps applying a warm, wet wash cloth to the wound for ten minutes first. Development of redness, severe itching, or blistering may mean allergy to the ointment. See the doctor. FOLLOW-UP CARE: If you have been referred to a physician for follow-up care, call the physicians office for an appointment as you were instructed or within the next two days. If you experience worsening or a significant change in your symptoms, notify the physician immediately or return to the Emergency Department at any time for re-evaluation.
== END 2019-05-10 17:10 | disposition home or self-care (01) ==
LOC: ER 15:46
DX: S61.214D Laceration without foreign body of right ring finger without damage to nail, subsequent encounter (principal); X58.XXXD Exposure to other specified factors, subsequent encounter